=== PATIENT | male | born 1965 ===

== ENCOUNTER → 2017-04-09 | Outpatient (RCR) | payer MEDICARE, MEDICAID | END | disposition home or self-care (01) | LOC: WCC 15:49 | DX: T81.89XA Other complications of procedures, not elsewhere classified, initial encounter (principal); Y83.5 Amputation of limb(s) as the cause of abnormal reaction of the patient, or of later complication, without mention of misadventure at the time of the procedure; Y92.9 Unspecified place or not applicable; I13.11 Hypertensive heart and chronic kidney disease without heart failure, with stage 5 chronic kidney disease, or end stage renal disease; E11.22 Type 2 diabetes mellitus with diabetic chronic kidney disease; N18.6 End stage renal disease; Z94.0 Kidney transplant status; I25.2 Old myocardial infarction; Z86.73 Personal history of transient ischemic attack (TIA), and cerebral infarction without residual deficits; Z86.718 Personal history of other venous thrombosis and embolism; Z79.82 Long term (current) use of aspirin; Z79.52 Long term (current) use of systemic steroids | CPT/HCPCS: G0463 ==

== ENCOUNTER 2017-04-10 13:07 | Outpatient (RCR) | payer MEDICARE, MEDICAID | END 2017-05-09 | disposition home or self-care (01) | LOC: WCC 13:07 | DX: S98.112A Complete traumatic amputation of left great toe, initial encounter (principal); T86.821 Skin graft (allograft) (autograft) failure; Z94.0 Kidney transplant status; I13.11 Hypertensive heart and chronic kidney disease without heart failure, with stage 5 chronic kidney disease, or end stage renal disease; E11.22 Type 2 diabetes mellitus with diabetic chronic kidney disease; N18.6 End stage renal disease; Z99.2 Dependence on renal dialysis; I25.2 Old myocardial infarction; Z86.73 Personal history of transient ischemic attack (TIA), and cerebral infarction without residual deficits; Z86.718 Personal history of other venous thrombosis and embolism; Z79.82 Long term (current) use of aspirin; X58.XXXA Exposure to other specified factors, initial encounter; Y93.9 Activity, unspecified; Y92.9 Unspecified place or not applicable; Z79.52 Long term (current) use of systemic steroids | CPT/HCPCS: 82962; G0277 ==

== ENCOUNTER 2017-05-11 13:34 | Outpatient (RCR) | payer MEDICARE, MEDICAID | END 2017-06-09 | disposition home or self-care (01) | LOC: WCC 13:34 | DX: T86.821 Skin graft (allograft) (autograft) failure (principal); S98.112A Complete traumatic amputation of left great toe, initial encounter; E11.621 Type 2 diabetes mellitus with foot ulcer; E11.22 Type 2 diabetes mellitus with diabetic chronic kidney disease; Z94.0 Kidney transplant status; I13.11 Hypertensive heart and chronic kidney disease without heart failure, with stage 5 chronic kidney disease, or end stage renal disease; N18.6 End stage renal disease; I25.2 Old myocardial infarction; Z86.73 Personal history of transient ischemic attack (TIA), and cerebral infarction without residual deficits; Z86.718 Personal history of other venous thrombosis and embolism; Z79.82 Long term (current) use of aspirin; Z79.52 Long term (current) use of systemic steroids | CPT/HCPCS: 82962; G0277; G0463 ==

== ENCOUNTER 2017-06-10 13:00 | Outpatient (RCR) | payer MEDICARE, MEDICAID | END 2017-07-09 | disposition home or self-care (01) | LOC: WCC 13:00 | DX: T86.821 Skin graft (allograft) (autograft) failure (principal); S98.112A Complete traumatic amputation of left great toe, initial encounter; E11.621 Type 2 diabetes mellitus with foot ulcer; E11.22 Type 2 diabetes mellitus with diabetic chronic kidney disease; Z94.0 Kidney transplant status; X58.XXXA Exposure to other specified factors, initial encounter; Y93.9 Activity, unspecified; Y92.9 Unspecified place or not applicable; I13.11 Hypertensive heart and chronic kidney disease without heart failure, with stage 5 chronic kidney disease, or end stage renal disease; N18.6 End stage renal disease; Z99.2 Dependence on renal dialysis; Z86.718 Personal history of other venous thrombosis and embolism; Z86.73 Personal history of transient ischemic attack (TIA), and cerebral infarction without residual deficits; I25.2 Old myocardial infarction; Z79.82 Long term (current) use of aspirin | CPT/HCPCS: 82962; G0277 ==

== ENCOUNTER 2017-07-10 13:00 | Outpatient (RCR) | payer MEDICARE, MEDICAID | END 2017-08-09 | disposition home or self-care (01) | LOC: WCC 13:00 | DX: T86.821 Skin graft (allograft) (autograft) failure (principal); S98.112A Complete traumatic amputation of left great toe, initial encounter; E11.621 Type 2 diabetes mellitus with foot ulcer; E11.22 Type 2 diabetes mellitus with diabetic chronic kidney disease; Z94.0 Kidney transplant status; I13.11 Hypertensive heart and chronic kidney disease without heart failure, with stage 5 chronic kidney disease, or end stage renal disease; N18.6 End stage renal disease; Z99.2 Dependence on renal dialysis; I25.2 Old myocardial infarction; Z86.73 Personal history of transient ischemic attack (TIA), and cerebral infarction without residual deficits; Z86.718 Personal history of other venous thrombosis and embolism; Z79.82 Long term (current) use of aspirin; Z79.52 Long term (current) use of systemic steroids ==